=== PATIENT | male | born 1960 | race Hispanic/Latino ===

== ENCOUNTER 2018-06-17 16:12 | Emergency (ER) | payer BC, MEDICAID, OTHER ==
[2018-06-17] MEDS ORDERED: Sodium Chloride 0.9% 1,000 ML IV ONE (16:34)
[2018-06-17] MEDS ORDERED: Morphine 4 MG/ML VIAL ONE (16:43)
[2018-06-17 16:51] LABS: BASO % 0.4 % (0.0-2.0); EOS # 0.1 K/uL (0.0-0.7); EOS % 0.4 % (0.0-4.0); HEMOGLOBIN 18.8 g/dL (12.0-18.0); LYMPH # 1.2 K/uL (1.0-4.3); LYMPH % 9.2 % (20.0-40.0); MEAN CELL VOLUME 94.2 fL (80.0-94.0); MEAN CORPUSCULAR HEMOGLOBIN 31.3 pg (27.0-31.0); MEAN CORPUSCULAR HGB CONC 33.3 g/dL (33.0-37.0); MEAN PLATELET VOLUME 7.4 fL (7.2-11.7); MONO # 0.6 K/uL (0.0-0.8); MONO % 4.5 % (0.0-10.0); NEUT # 10.9 K/uL (1.8-7.0); NEUT % 85.5 % (50.0-75.0); PLATELET COUNT 282 K/uL (130-400); RBC 6.01 Mil/uL (4.40-5.90); RED CELL DISTRIBUTION WIDTH 13.5 % (11.5-14.5); WHITE BLOOD COUNT 12.8 K/uL (4.8-10.8)
--- NOTE | 2018-06-17 16:55 | C.PDOC ---
History Of Present Illness 57 y/o male comes in to ED complaining of constant abdominal pain since 3 days ago, worsening for the past 2 hours. Patient has history of hernia repairs in the past. Patient denies vomiting, diarrhea, or fever. <Amol Carson V - Last Filed: 06/17/18 19:08> History Per: Patient History/Exam Limitations: no limitations Onset/Duration Of Symptoms: Days Current Symptoms Are (Timing): Still Present <Amol Carson V - Last Filed: 06/17/18 19:08> <Paulina Gray - Last Filed: 06/17/18 20:30> Time Seen by Provider: 06/17/18 16:24 Chief Complaint (Nursing): Abdominal Pain Past Medical History Reviewed: Historical Data, Nursing Documentation, Vital Signs Vital Signs: Last Vital Signs Temp 98.4 F 06/17/18 16:20 Pulse 64 06/17/18 16:20 Resp 18 06/17/18 16:20 BP 186/100 H 06/17/18 16:20 Pulse Ox 99 06/17/18 16:20 - Medical History PMH: HTN Family History: States: No Known Family Hx - Social History Hx Tobacco Use: No Hx Alcohol Use: Yes Hx Substance Use: No - Immunization History Hx Tetanus Toxoid Vaccination: No Hx Influenza Vaccination: No Hx Pneumococcal Vaccination: No <Amol Carson V - Last Filed: 06/17/18 19:08> Vital Signs: Last Vital Signs Temp 97.8 F 06/17/18 20:23 Pulse 87 06/17/18 20:23 Resp 16 06/17/18 20:23 BP 178/96 H 06/17/18 20:23 Pulse Ox 98 06/17/18 20:23 <Paulina Gray - Last Filed: 06/17/18 20:30> Review Of Systems Except As Marked, All Systems Reviewed And Found Negative. Constitutional: Negative for: Fever, Chills Gastrointestinal: Positive for: Abdominal Pain. Negative for: Vomiting, Diarrhea <Amol Carson V - Last Filed: 06/17/18 19:08> Physical Exam - Physical Exam Appears: Non-toxic, No Acute Distress Skin: Warm, Dry Head: Atraumatic, Normacephalic Eye(s): bilateral: Normal Inspection Oral Mucosa: Moist Neck: Supple Cardiovascular: Rhythm Regular, No Murmur Respiratory: Normal Breath Sounds, No Rales, No Rhonchi, No Wheezing Gastrointestinal/Abdominal: Hernia (ventral hernia not reducible on initial exam, tender to palpation) Extremity: Bilateral: Atraumatic, Normal Color And Temperature, Normal ROM Neurological/Psych: Oriented x3, Normal Speech <AlfonzoelizabetharashbrysonAmol Fields - Last Filed: 06/17/18 19:08> ED Course And Treatment - Laboratory Results Result Diagrams: 06/17/18 16:48 06/17/18 16:48 O2 Sat by Pulse Oximetry: 99 (RA) Pulse Ox Interpretation: Normal <Amol Carson V - Last Filed: 06/17/18 19:08> - Laboratory Results Result Diagrams: 06/17/18 16:48 06/17/18 16:48 Lab Results: Total Bilirubin 0.8 mg/dL (0.2-1.3) 06/17/18 16:48 AST 28 U/L (17-59) 06/17/18 16:48 ALT 29 U/L (21-72) 06/17/18 16:48 Alkaline Phosphatase 85 U/L (38-126) 06/17/18 16:48 Total Protein 8.3 g/dL (6.3-8.3) 06/17/18 16:48 Albumin 4.9 g/dL (3.5-5.0) 06/17/18 16:48 Globulin 3.4 gm/dL (2.2-3.9) 06/17/18 16:48 Albumin/Globulin Ratio 1.4 (1.0-2.1) 06/17/18 16:48 Lipase 80 U/L (23-300) 06/17/18 16:48 Reevaluation Time: 20:29 Reassessment Condition: Unchanged (ADVISED BY RN PT ELOPED PRIOR TO RECEIVING CT RESULTS, DC PAPERS. UNABLE TO REEVALUATE PT DUE TO ELOPEMENT) <Paulina Gray - Last Filed: 06/17/18 20:30> Medical Decision Making Medical Decision Making: Plan: --Abd/Pel CT --Labs --Morphine 4 mg IVP --IV fluids 1L IV --Zofran 4 mg IVP Update: After pain medication, hernia was easily reduced. Pain has improved. CT pending. Patient will be discharged based on CT report. <Amol Carson V - Last Filed: 06/17/18 19:08> Disposition Counseled Patient/Family Regarding: Studies Performed, Diagnosis, Need For Followup - POA Present On Arrival: None <Amol Carson V - Last Filed: 06/17/18 19:08> - Disposition Disposition Time: 20:30 <Paulina Gray - Last Filed: 06/17/18 20:30> - Disposition Referrals: Samm Mathews MD [Staff Provider] - Disposition: ELOPEMENT - ER ONLY Condition: STABLE Prescriptions: Dicyclomine [Dicyclomine HCl] 10 mg PO TID #14 cap Instructions: Acute Abdomen (Belly Pain), Acute Abdomen (Belly Pain), Adult (DC), Abdominal Hernia (DC) Forms: [employer] (Congolese) - Clinical Impression Clinical Impression: Abdominal pain, Ventral hernia - Scribe Statement The provider has reviewed the documentation as recorded by the Katrin Goins Provider Attestation: All medical record entries made by the Corrieibdaryl were at my direction and personally dictated by me. I have reviewed the chart and agree that the record accurately reflects my personal performance of the history, physical exam, medical decision making, and the department course for this patient. I have also personally directed, reviewed, and agree with the discharge instructions and disposition. <Amol Carson V - Last Filed: 06/17/18 19:08> Physician Patient Turnover Patient Signed Over To: Paulina Gray Handoff Comments: ct pending <Amol Carson V - Last Filed: 06/17/18 19:08>
[2018-06-17] MEDS ORDERED: Sodium Chloride 0.9% 1,000 ML ONE (17:02)
[2018-06-17 17:03] LABS: ALB/GLOB RATIO 1.4 (1.0-2.1); ALBUMIN 4.9 g/dL (3.5-5.0); ALT/SGPT 29 U/L (21-72); AST/SGOT 28 U/L (17-59); BLOOD UREA NITROGEN 16 mg/dL (9-20); CALCIUM 9.7 mg/dl (8.6-10.4); GFR NON-AFRICAN AMERICAN > 60; LIPASE 80 U/L (23-300)
[2018-06-17 18:09] LABS: LYMPHOCYTE 11 % (20-40); MONOCYTE 2 % (0-10); NEUTROPHIL 87 % (50-75); PLATELET ESTIMATE NORMAL (NORMAL); TOTAL CELLS COUNTED 100
[2018-06-17] MEDS ORDERED: Iodixanol 320 MG/ML 100 ML BOTTLE IV ONE (18:57)
[2018-06-17 20:23] VITALS: BP 178/96; PULSE 87; RESP 16; TEMP 97.8; O2SAT 98
--- NOTE | 2018-06-18 12:59 | CT ---
Date of service: 06/17/2018 PROCEDURE: CT Abdomen and pelvis. HISTORY: Reduced ventral hernia COMPARISON: No prior study available for comparison. TECHNIQUE: Contiguous axial images of the abdomen and pelvis performed without oral or intravenous contrast material. Additional 2D sagittal and coronal reformats generated. Radiation dose: Total exam DLP = 1282.28 mGy-cm. This CT exam was performed using one or more of the following dose reduction techniques: Automated exposure control, adjustment of the mA and/or kV according to patient size, and/or use of iterative reconstruction technique. FINDINGS: LOWER THORAX: Minor curvilinear scarring changes seen in the right posterior lower lung field. No acute consolidation. No effusion or basilar pneumothorax. Heart size within range of normal. The small hiatal hernia. LIVER: Liver exhibits relatively normal size. No evidence of hepatic masses or collections. No gross ductal dilatation. GALLBLADDER AND BILE DUCTS: Gallbladder physiologically distended. No evidence of intraluminal gallbladder calculi. PANCREAS: Pancreas appears unremarkable without masses collections or calcifications. The SPLEEN: Unremarkable. No splenomegaly. ADRENALS: No obvious adrenal lesions are identified. KIDNEYS AND URETERS: Left kidney appears to be surgically absent with radiopaque suture material in the medial aspect left renal fossa. Right kidney is unremarkable. BLADDER: Grossly unremarkable. REPRODUCTIVE: State gland measures 4.4 cm encroaches into the floor of the urinary bladder. Findings likely due to BPH however correlation with PSA recommended.. APPENDIX: The appendix is unremarkable. BOWEL: Evaluation of the bowel is somewhat limited due to the lack of oral contrast material however some hyperdense mid intraluminal contents present within a few loops of proximal small bowel.. As mentioned below, there is the ventral wall hernia that contains mesenteric fat as well as a loop of unobstructed small bowel. No evidence of acute mechanical small bowel obstruction. The there is moderate amount of stool in the cecum at ascending and transverse colon consistent with mild fecal retention/constipation. Numerous colonic diverticula seen along the sigmoid colon however no definitive radiographic evidence of acute diverticulitis. PERITONEUM: Unremarkable. No fluid collection. No free air. There is a fat containing left lower anterolateral abdominal wall hernia. In addition, there is a right parasagittal and mid ventral wall hernia containing mesenteric fat and a loop of unobstructed small bowel. There is also a tiny fat containing umbilical hernia. LYMPH NODES: Unremarkable. No enlarged lymph nodes. VASCULATURE: Unremarkable. No aortic aneurysm. Minor aortic atherosclerotic calcification or mural plaque present. BONES: Mild multilevel degenerative spondylosis of the lower thoracic and lumbar spine. OTHER FINDINGS: None. IMPRESSION: There is a fat containing ventral wall hernia just above the level of the umbilicus centrally and to the right of midline which also contains a loop of unobstructed small bowel. There is a 2nd smaller fat containing hernia along the left lower anterolateral abdominal wall. Diverticulosis without radiographic evidence of acute diverticulitis. Left-sided nephrectomy. Clinical correlation with history recommended. Urinary bladder is moderately distended with enlargement of the prostate gland. Findings likely due to BPH however correlation with PSA recommended. Rule out on bladder outlet obstruction.
== END 2018-06-17 20:23 | disposition left against medical advice (07) ==
LOC: C.ER 16:12
DX: K43.9 Ventral hernia without obstruction or gangrene (principal); R10.9 Unspecified abdominal pain
CPT/HCPCS: 74176; 80053; 83605; 83690; 85025; 96361; 96374; 96375; 99283; J2270; J2405; J7030